=== PATIENT | female | born 1980 | race American Indian/Alaskan Native ===

== ENCOUNTER 2022-06-22 14:49 | Inpatient (IN) | payer SELFPAY ==
[2022-06-22] MEDS ORDERED: DEXTROSE 50% IN WATER (25GM) 50 ML SYRINGE IV ONE ×2 (15:26→17:45)
--- NOTE | 2022-06-22 15:58 | Emergency Department Report ---
History of Present Illness - General Chief Complaint: Overdose Stated Complaint: HYPOGLYCEMIA AND OVERDOSE Time Seen by Provider: 06/22/22 15:44 Source: EMS Mode of arrival: Stretcher Limitations: No Limitations - History of Present Illness Initial Comments: Patient is a 41-year-old female brought in by EMS for suspected overdose/hyperglycemia. She was found unresponsive by family who called EMS. EMS arrived to find patient hypoglycemic with initial fingerstick of 40. She was given IV dextrose with increased to 80. She was also given Narcan resulting in increased responsiveness. - Related Data Allergies Allergy/AdvReac Type Severity Reaction Status Date / Time No Known Allergies Allergy Verified 06/22/22 15:00 ED Review of Systems ROS: Stated complaint: HYPOGLYCEMIA AND OVERDOSE Other details as noted in HPI Comment: Unobtainable due to pts medical conditions ED Physical Exam - General Limitations: No Limitations General appearance: appears intoxicated, lethargic - Head Head exam: Present: atraumatic, normocephalic - Respiratory Respiratory exam: Present: normal lung sounds bilaterally. Absent: respiratory distress - Cardiovascular Cardiovascular Exam: Present: normal rhythm, tachycardia, normal heart sounds - GI/Abdominal GI/Abdominal exam: Present: soft. Absent: distended, tenderness - Rectal Rectal exam: Present: deferred - Neurological Exam Neurological exam: Present: altered - Skin Skin exam: Present: warm, dry, intact, normal color ED Course Vital Signs 06/22/22 14:54 Temperature 97.9 F Pulse Rate 114 H Respiratory 18 Rate Blood Pressure 122/82 [Left] O2 Sat by Pulse 96 Oximetry ED Medical Decision Making - Lab Data Result diagrams: 06/22/22 15:54 06/22/22 15:54 - Medical Decision Making Serum glucose 73. Patient given 1 amp of D50 resulting in increase to 107. Patient started on D5 normal saline infusion at 150 cc an hour. Repeat Accu- Chek an hour later was 44. Patient given another amp of D50 and rate increased to 250 cc an hour. Family arrived later and states that patient was reportedly partying with friends and likely consuming recreational drugs along with alcohol. Reports past history of alcoholism and drug use. No prior history of diabetes. Will admit for hypoglycemia. Critical care attestation.: If time is entered above; I have spent that time in minutes in the direct care of this critically ill patient, excluding procedure time. ED Disposition Clinical Impression: Hypoglycemia Disposition: ADMITTED INPATIENT Is pt being admited?: Yes Condition: Stable
[2022-06-22] MEDS ORDERED: SODIUM CHLORIDE 0.9% 1000 ML 1,000 ML IV ONE (16:00)
[2022-06-22 16:40] LABS: Mean Corpuscular HGB Conc 31 % (30-34); Mean Corpuscular Volume 89 fl (79-97); Platelet Count 264 K/mm3 (140-440); Red Blood Count 4.61 M/mm3 (3.65-5.03); Red Cell Distribution Width 14.3 % (13.2-15.2)
[2022-06-22 16:44] LABS: Hematocrit 41.2 % (30.3-42.9); Hemoglobin 12.7 gm/dl (10.1-14.3)
[2022-06-22 17:02] LABS: Alanine Aminotransferase 101 units/L (7-56); Albumin 4.1 g/dL (3.9-5); BUN/Creatinine Ratio 15; Blood Urea Nitrogen 20 mg/dL (7-17); Calcium 9.2 mg/dL (8.4-10.2); Hemolysis Index 73
[2022-06-22 17:33] LABS: Band Neutrophils # (Manual) 1.7 K/mm3; Basophils % (Manual) 0 % (0.0-1.8); Eosinophils % (Manual) 0 % (0.0-4.3); Myelocytes # (Manual) 0.5 K/mm3; Total Cells Counted 100
[2022-06-22 17:37] LABS: Platelet Estimate Consistent w Auto; RBC Morphology Normal
[2022-06-22] MEDS: D5W/0.9% NACL 1,000 ML IV SCH (17:55)
[2022-06-22] MEDS ORDERED: DEXTROSE 50% IN WATER (25GM) 50 ML VIAL IV ONE (18:00)
[2022-06-22 20:00] LABS: Amphetamine Screen,Urine Negative; Benzodiazepines Screen,Urine Negative; Cannabinoid Screen,Urine Negative; Methadone Screen,Urine Negative; Opiate Screen,Urine Negative
[2022-06-22 21:03] LABS: Cocaine Screen,Urine Positive
[2022-06-22] MEDS ORDERED: ACETAMINOPHEN 325 MG TAB PO PRN (23:05)
[2022-06-22] MEDS ORDERED: MORPHINE 4 MG/1 ML INJ IV PRN (23:05)
[2022-06-22] MEDS ORDERED: DEXTROSE 50% IN WATER (25GM) 50 ML SYRINGE IV PRN (23:05)
[2022-06-22] MEDS ORDERED: MAGNESIUM HYDROXIDE (MOM) ORAL LIQD UDC PO PRN (23:05)
[2022-06-22] MEDS ORDERED: MORPHINE 2 MG/1 ML INJ IV PRN (23:05)
[2022-06-22] MEDS ORDERED: ONDANSETRON 4 MG/2 ML INJ IV PRN (23:05)
--- NOTE | 2022-06-22 23:15 | History and Physical Report ---
History of Present Illness Date of examination: 06/22/22 Date of admission: 06/22/2022 Chief complaint: Overdose Hypoglycemia History of present illness: 41-year-old female brought into the emergency room via EMS for changes in mental status and hypoglycemia. Patient was said to be found unresponsive by family and EMS was called to scene. She was found to be hypoglycemic with blood glucose of 40. Patient was given IV dextrose. Improvement of blood glucose to about 80. Patient also had Narcan and became more responsive. Most of the history was obtained from the ER staff as patient cannot give a very coherent history. She appeared very drowsy. Work-up in the emergency room today, lab reveals WBC of 15.1, BUN of 20 and creatinine of 1.3. AST of 199 and ALT of 101. Urine drug screen was positive for cocaine. Patient being admitted for possible drug overdose and hypoglycemia. Past History Past Medical History: No medical history Past Surgical History: No surgical history Social history: no significant social history Family history: no significant family history Medications and Allergies Allergies Allergy/AdvReac Type Severity Reaction Status Date / Time No Known Allergies Allergy Verified 06/22/22 15:00 Active Meds: Active Medications Acetaminophen (Acetaminophen 325 Mg Tab) 650 mg PO Q4H PRN PRN Reason: Pain MILD(1-3)/Fever >100.5/PADILLA Dextrose (Dextrose 50% In Water (25gm) 50 Ml Syringe) 50 ml IV Q30MIN PRN; Protocol PRN Reason: Hypoglycemia Dextrose (Dextrose 50% In Water (25gm) 50 Ml Syringe) 50 ml IV Q30MIN PRN; Protocol PRN Reason: Hypoglycemia Heparin Sodium (Porcine) (Heparin 5,000 Unit/1 Ml Vial) 5,000 unit SUB-Q Q8HR GERARD Dextrose/Sodium Chloride (D5ns) 1,000 mls @ 150 mls/hr IV DIRECT GERARD Last Admin: 06/22/22 17:55 Dose: 150 mls/hr Insulin Human Lispro (Insulin Lispro 100 Unit/Ml) 0 unit SUB-Q ACHS GERARD; Protocol Magnesium Hydroxide (Magnesium Hydroxide (Mom) Oral Liqd Udc) 30 ml PO Q4H PRN PRN Reason: Constipation Morphine Sulfate (Morphine 2 Mg/1 Ml Inj) 2 mg IV Q4H PRN PRN Reason: Pain, Moderate (4-6) Morphine Sulfate (Morphine 4 Mg/1 Ml Inj) 4 mg IV Q4H PRN PRN Reason: Pain , Severe (7-10) Ondansetron HCl (Ondansetron 4 Mg/2 Ml Inj) 4 mg IV Q8H PRN PRN Reason: Nausea And Vomiting Sodium Chloride (Sodium Chloride 0.9% 10 Ml Flush Syringe) 10 ml IV BID GERARD Sodium Chloride (Sodium Chloride 0.9% 10 Ml Flush Syringe) 10 ml IV PRN PRN PRN Reason: LINE FLUSH Review of Systems Constitutional: no fever, no chills Ears, nose, mouth and throat: no nasal congestion, no sore throat Cardiovascular: no chest pain, no palpitations Respiratory: no cough, no shortness of breath Gastrointestinal: no abdominal pain, no nausea, no vomiting, no diarrhea Genitourinary Female: no pelvic pain, no flank pain, no dysuria, no hematuria Musculoskeletal: no neck pain, no low back pain Integumentary: no rash, no pruritis Neurological: no headaches, no confusion Psychiatric: no anxiety, no depression Endocrine: no polyphagia, no polydipsia, no polyuria, no nocturia Exam - Constitutional Vitals: Temp Pulse Resp BP Pulse Ox 98.0 F 92 H 17 109/76 98 06/22/22 20:45 06/22/22 22:08 06/22/22 22:08 06/22/22 22:08 06/22/22 22:08 General appearance: Present: no acute distress, well-nourished - EENT Eyes: Present: PERRL, EOM intact. Absent: scleral icterus ENT: hearing intact, clear oral mucosa, dentition normal - Neck Neck: Present: supple, normal ROM - Respiratory Respiratory effort: normal Respiratory: bilateral: CTA - Cardiovascular Rhythm: regular Heart Sounds: Present: S1 & S2. Absent: gallop, systolic murmur, diastolic murmur, rub, click - Extremities Extremities: no ischemia, pulses intact, pulses symmetrical, No edema, normal temperature, normal color, Full ROM Peripheral Pulses: within normal limits - Abdominal General gastrointestinal: Present: soft, non-tender, non-distended, normal bowel sounds. Absent: mass - Integumentary Integumentary: Present: clear, warm, dry, normal turgor. Absent: rash - Musculoskeletal Musculoskeletal: strength equal bilaterally - Psychiatric Psychiatric: appropriate mood/affect, intact judgment & insight, memory intact, cooperative - Neurologic Neurologic: CNII-XII intact, no focal deficits, moves all extremities, other (Drowsy) Results - Labs CBC & Chem 7: 06/22/22 15:54 06/22/22 15:54 Labs: Abnormal lab results 06/22/22 06/22/22 06/22/22 Range/Units 15:54 15:54 15:54 WBC 15.1 H (4.5-11.0) K/mm3 Seg Neuts % (Manual) 82.0 H (40.0-70.0) % Lymphocytes % (Manual) 3.0 L (13.4-35.0) % Seg Neutrophils # Man 12.4 H (1.8-7.7) K/mm3 Lymphocytes # (Manual) 0.5 L (1.2-5.4) K/mm3 Carbon Dioxide 16 L (22-30) mmol/L BUN 20 H (7-17) mg/dL Creatinine 1.3 H (0.6-1.2) mg/dL POC Glucose (70-105) mg/dL AST 199 H (5-40) units/L ALT 101 H (7-56) units/L Salicylates < 0.3 L (2.8-20.0) mg/dL Acetaminophen (10.0-30.0) ug/mL 06/22/22 06/22/22 06/22/22 Range/Units 15:54 17:44 18:21 WBC (4.5-11.0) K/mm3 Seg Neuts % (Manual) (40.0-70.0) % Lymphocytes % (Manual) (13.4-35.0) % Seg Neutrophils # Man (1.8-7.7) K/mm3 Lymphocytes # (Manual) (1.2-5.4) K/mm3 Carbon Dioxide (22-30) mmol/L BUN (7-17) mg/dL Creatinine (0.6-1.2) mg/dL POC Glucose 44 L 158 H (70-105) mg/dL AST (5-40) units/L ALT (7-56) units/L Salicylates (2.8-20.0) mg/dL Acetaminophen 5.0 L (10.0-30.0) ug/mL 06/22/22 Range/Units 19:12 WBC (4.5-11.0) K/mm3 Seg Neuts % (Manual) (40.0-70.0) % Lymphocytes % (Manual) (13.4-35.0) % Seg Neutrophils # Man (1.8-7.7) K/mm3 Lymphocytes # (Manual) (1.2-5.4) K/mm3 Carbon Dioxide (22-30) mmol/L BUN (7-17) mg/dL Creatinine (0.6-1.2) mg/dL POC Glucose 158 H (70-105) mg/dL AST (5-40) units/L ALT (7-56) units/L Salicylates (2.8-20.0) mg/dL Acetaminophen (10.0-30.0) ug/mL Assessment and Plan Assessment: 1.Altered mental Status-possibly secondary to drug overdose. 2.Hypoglycemia Plan: 1. Patient admitted and placed on dextrose IV fluid. We will monitor Accu- Cheks. 2. We will continue to monitor mental status. DVT Prophylaxis:SQ Heparin Code Status: Full Code
[2022-06-23] MEDS: HEPARIN 5,000 UNIT/1 ML VIAL SUB-Q SCH ×3 (05:25→21:30)
[2022-06-23] MEDS: D5W/0.9% NACL 1,000 ML IV SCH (05:25)
[2022-06-23 06:08] LABS: BUN/Creatinine Ratio 19; Blood Urea Nitrogen 17 mg/dL (7-17); Hemolysis Index 9
--- NOTE | 2022-06-23 09:34 | Discharge Summary ---
Providers - Providers Date of Admission: 06/22/22 23:06 Date of discharge: 06/23/22 Attending physician: EDWIN RAMIREZ 06/22/22 23:06 Consult to Dietitian/Nutrition [CONS] Routine Physician Instructions: Reason For Exam: Reason for Consult: Diet education Primary care physician: ANN HALE Hospitalization Reason for admission: AMS, hypoglycemia Condition: Stable Hospital course: 41-year-old female brought into the emergency room via EMS for changes in mental status and hypoglycemia. Patient was said to be found unresponsive by family and EMS was called to scene. She was found to be hypoglycemic with blood glucose of 40. Patient was given IV dextrose. Improvement of blood glucose to about 80. Patient also had Narcan and became more responsive. Initially, most of the history was obtained from the ER staff as patient cannot give a very coherent history. She appeared very drowsy. Work-up in the emergency room today, lab reveals WBC of 15.1, BUN of 20 and creatinine of 1.3. AST of 199 and ALT of 101. Urine drug screen was positive for cocaine. The patient was admitted for drug o verdose, metabolic encephalopathy and hypoglycemia. The patient is back to her baseline mental status and BG has been stable. The patient to be evaluated by psych and if cleared will be discharged home. Dedicated discharge time 32 minutes Disposition: 01 HOME / SELF CARE / HOMELESS Final Discharge Diagnosis (Prints w/discharge instructions): Cocaine abuse, Whipple's triad, hypoglycemia, metabolic encephalopathy Core Measure Documentation - Palliative Care Palliative Care/ Comfort Measures: Not Applicable - Core Measures Any of the following diagnoses?: none Exam - Constitutional Vitals: Temp Pulse Resp BP Pulse Ox 97.8 F 86 16 100/69 100 06/23/22 08:13 06/23/22 08:13 06/23/22 05:25 06/23/22 08:13 06/23/22 08:13 General appearance: Present: no acute distress, well-nourished - EENT Eyes: Present: PERRL ENT: hearing intact, clear oral mucosa - Neck Neck: Present: supple, normal ROM - Respiratory Respiratory effort: normal Respiratory: bilateral: CTA - Cardiovascular Heart Sounds: Present: S1 & S2. Absent: rub, click - Extremities Extremities: pulses symmetrical, No edema Peripheral Pulses: within normal limits - Abdominal General gastrointestinal: Present: soft, non-tender, non-distended, normal bowel sounds Female genitourinary: Present: normal - Integumentary Integumentary: Present: clear, warm, dry - Musculoskeletal Musculoskeletal: gait normal, strength equal bilaterally - Psychiatric Psychiatric: appropriate mood/affect, intact judgment & insight - Neurologic Neurologic: CNII-XII intact, moves all extremities Plan Activity: advance as tolerated Weight Bearing Status: Weight Bear as Tolerated Diet: regular Follow up with: ANN HALE MD [Primary Care Provider] - 3-5 Days
[2022-06-23] MEDS: INSULIN LISPRO 100 UNIT/ML SUB-Q SCH ×3 (09:55→22:00)
--- NOTE | 2022-06-23 13:22 | Consultation ---
History of Present Illness - Reason for Consult Consult date: 06/23/22 Reason for consult: ams - Chief Complaint Chief complaint: Overdose Hypoglycemia - History of Present Psychiatric Illness The patient was seen today. She says she was brought to the hospital after she passed out. She says she was told her blood sugar dropped. The patient is a/o x 3. She is calm, cooperative and pleasant. She says she feels fine. The patient denies overdosing on anything, she also denies SI/HI or any past attempt. She does endorse doing cocaine and alcohol for "recreational use." The patient denies any past history of psych, and inpatient admissions or being on any psych meds. She denies hallucinations of any kind. The patient says she lives with her children. She is , and employed. REVIEW OF SYSTEMS Constitutional: Negative for weight loss ENT: Negative for stridor Respiratory: Negative for cough or hemoptysis All other systems reviewed and are negative MENTAL STATUS EXAMINATION General Appearance and Behavior: polite, calm, and cooperative, in bed eating Cooperation: Participating/engaged Psychomotor Behavior: normal Mood: fine Affect and affective range: Euthymic Thought Process: goal directed Thought Content: reality oriented Speech: Normal tone and pace Suicidal Ideation: Denies Homicidal Ideation: Denies Hallucinations: Denies Delusions: None elicited Impulse Control: Normal Insight and Judgment: Normal insight and judgment Memory: Normal Attention: Attentive Orientation: Alert, oriented x 3 Assessment and Plan (1) Encounter for Mental Health Eval Treatment Plan No scripts given Risks, benefits and alternatives of medications discussed with the patient, questions answered and consent obtained from patient. PSYCHOTHERAPY: Supportive psychotherapy provided MEDICAL: Per primary team DELIRIUM PRECAUTIONS: Please re-orient patient frequently, keep lights on during the day, and minimize benzodiazepines and opiates as these medications could worsen patient's confusion. 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 Thank you for the consult. Please contact with any questions and/or concerns. Case staffed with Dr. Navarro Medications and Allergies Allergies Allergy/AdvReac Type Severity Reaction Status Date / Time acetaminophen [From Percocet] Allergy Hives Verified 06/23/22 10:51 oxycodone [From Percocet] Allergy Hives Verified 06/23/22 10:51 Home Medications Medication Instructions Recorded Confirmed Last Taken Type No Known Home Medications [No 06/23/22 06/23/22 Unknown History Reported Home Medications] Active Meds: Active Medications Acetaminophen (Acetaminophen 325 Mg Tab) 650 mg PO Q4H PRN PRN Reason: Pain MILD(1-3)/Fever >100.5/PADILLA Dextrose (Dextrose 50% In Water (25gm) 50 Ml Syringe) 50 ml IV Q30MIN PRN; Protocol PRN Reason: Hypoglycemia Heparin Sodium (Porcine) (Heparin 5,000 Unit/1 Ml Vial) 5,000 unit SUB-Q Q8HR GERARD Last Admin: 06/23/22 05:25 Dose: 5,000 unit Dextrose/Sodium Chloride (D5ns) 1,000 mls @ 150 mls/hr IV DIRECT GERARD Last Admin: 06/23/22 05:25 Dose: 150 mls/hr Insulin Human Lispro (Insulin Lispro 100 Unit/Ml) 0 unit SUB-Q ACHS GERARD; Protocol Last Admin: 06/23/22 09:55 Dose: Not Given Magnesium Hydroxide (Magnesium Hydroxide (Mom) Oral Liqd Udc) 30 ml PO Q4H PRN PRN Reason: Constipation Morphine Sulfate (Morphine 2 Mg/1 Ml Inj) 2 mg IV Q4H PRN PRN Reason: Pain, Moderate (4-6) Morphine Sulfate (Morphine 4 Mg/1 Ml Inj) 4 mg IV Q4H PRN PRN Reason: Pain , Severe (7-10) Ondansetron HCl (Ondansetron 4 Mg/2 Ml Inj) 4 mg IV Q8H PRN PRN Reason: Nausea And Vomiting Sodium Chloride (Sodium Chloride 0.9% 10 Ml Flush Syringe) 10 ml IV BID GERARD Sodium Chloride (Sodium Chloride 0.9% 10 Ml Flush Syringe) 10 ml IV PRN PRN PRN Reason: LINE FLUSH Mental Status Exam - Vital signs Last Vital Signs Temp 97.8 F 06/23/22 08:13 Pulse 86 06/23/22 08:13 Resp 16 06/23/22 05:25 BP 100/69 06/23/22 08:13 Pulse Ox 100 06/23/22 08:13 Results Result Diagrams: 06/22/22 15:54 06/23/22 04:47 Abnormal lab results 06/22/22 06/22/22 06/22/22 Range/Units 15:54 15:54 15:54 WBC 15.1 H (4.5-11.0) K/mm3 Seg Neuts % (Manual) 82.0 H (40.0-70.0) % Lymphocytes % (Manual) 3.0 L (13.4-35.0) % Seg Neutrophils # Man 12.4 H (1.8-7.7) K/mm3 Lymphocytes # (Manual) 0.5 L (1.2-5.4) K/mm3 Sodium (137-145) mmol/L Chloride (98-107) mmol/L Carbon Dioxide 16 L (22-30) mmol/L BUN 20 H (7-17) mg/dL Creatinine 1.3 H (0.6-1.2) mg/dL Glucose (65-100) mg/dL POC Glucose (70-105) mg/dL AST 199 H (5-40) units/L ALT 101 H (7-56) units/L Salicylates < 0.3 L (2.8-20.0) mg/dL Acetaminophen (10.0-30.0) ug/mL 06/22/22 06/22/22 06/22/22 Range/Units 15:54 17:44 18:21 WBC (4.5-11.0) K/mm3 Seg Neuts % (Manual) (40.0-70.0) % Lymphocytes % (Manual) (13.4-35.0) % Seg Neutrophils # Man (1.8-7.7) K/mm3 Lymphocytes # (Manual) (1.2-5.4) K/mm3 Sodium (137-145) mmol/L Chloride (98-107) mmol/L Carbon Dioxide (22-30) mmol/L BUN (7-17) mg/dL Creatinine (0.6-1.2) mg/dL Glucose (65-100) mg/dL POC Glucose 44 L 158 H (70-105) mg/dL AST (5-40) units/L ALT (7-56) units/L Salicylates (2.8-20.0) mg/dL Acetaminophen 5.0 L (10.0-30.0) ug/mL 06/22/22 06/23/22 Range/Units 19:12 04:47 WBC (4.5-11.0) K/mm3 Seg Neuts % (Manual) (40.0-70.0) % Lymphocytes % (Manual) (13.4-35.0) % Seg Neutrophils # Man (1.8-7.7) K/mm3 Lymphocytes # (Manual) (1.2-5.4) K/mm3 Sodium 131 L D (137-145) mmol/L Chloride 97.6 L (98-107) mmol/L Carbon Dioxide 20 L (22-30) mmol/L BUN (7-17) mg/dL Creatinine (0.6-1.2) mg/dL Glucose 101 H (65-100) mg/dL POC Glucose 158 H (70-105) mg/dL AST (5-40) units/L ALT (7-56) units/L Salicylates (2.8-20.0) mg/dL Acetaminophen (10.0-30.0) ug/mL All other labs normal.
[2022-06-24] MEDS: HEPARIN 5,000 UNIT/1 ML VIAL SUB-Q SCH ×2 (06:10→14:46)
[2022-06-24 08:41] VITALS: BP 102/57
[2022-06-24] MEDS: INSULIN LISPRO 100 UNIT/ML SUB-Q SCH ×2 (08:56→14:46)
[2022-06-24] MEDS ORDERED: SODIUM CHLORIDE 0.9% 1000 ML 1,000 ML IV SCH (10:00)
--- NOTE | 2022-06-24 10:02 | Cat Scan Report ---
CT HEAD WITHOUT CONTRAST INDICATION / CLINICAL INFORMATION: r/o CVA. TECHNIQUE: Axial imaging performed from the skull apex through the skull base without the use of cont rast. Sagittal and coronal reformatted images. All CT scans at this location are performed using CT dose reduction for ALARA by means of automated exposure control. COMPARISON: None available. FINDINGS: CEREBRAL PARENCHYMA: No significant abnormality. No acute territorial infarct. HEMORRHAGE: None. EXTRA-AXIAL SPACES: Normal in size and morphology for the patient's age. VENTRICULAR SYSTEM: Normal in size and morphology for the patient's age. MIDLINE SHIFT OR HERNIATION: None. CEREBELLUM / BRAINSTEM: No significant abnormality. CALVARIUM: No significant abnormality. ORBITS: Normal as visualized. PARANASAL SINUSES / MASTOID AIR CELLS: Normal as visualized. SOFT TISSUES of HEAD: No significant abnormality. ADDITIONAL FINDINGS: None. IMPRESSION: No acute intracranial abnormality. Signer Name: Arsalan Fofana Jr, MD Signed: 06/24/2022 9:58 AM Workstation Name: [id number]
--- NOTE | 2022-06-24 11:02 | Progress Note ---
Assessment and Plan Assessment and plan: 41-year-old female brought into the emergency room via EMS for changes in mental status and hypoglycemia. Patient was said to be found unresponsive by family and EMS was called to scene. She was found to be hypoglycemic with blood glucose of 40. Patient was given IV dextrose. Improvement of blood glucose to about 80. Patient also had Narcan and became more responsive. Initially, most of the history was obtained from the ER staff as patient cannot give a very coherent history. She appeared very drowsy. Work-up in the emergency room with lab revealing WBC of 15.1, BUN of 20 and creatinine of 1.3. AST of 199 and ALT of 101. Urine drug screen was positive for cocaine. The patient was admitted with diagnosis below Metabolic encephalopathy Hypoglycemia Drug overdose 06/23/2022. Patient will have psychiatric evaluation and if cleared will likely discharge home. Patient exhibited Whipple's triad with resolution of altered mentation with the administration of glucose. Patient exhibiting no further signs of altered mentation or hypoglycemia 06/24/2022. Patient refused discharge yesterday evening because of right lower extremity pain causing unsteady gait and persistent dizziness. We will check CT scan of the head today for further evaluation. Also, given the questionable syncope/fall, we will check right hip films. Patient does have some mild tenderness to the right lateral hip. No evidence of bruising. PT evaluation History Interval history: No new issues overnight Hospitalist Physical - Constitutional Vitals: Temp Pulse Resp BP Pulse Ox 98.9 F 100 H 18 102/57 97 06/24/22 07:47 06/24/22 07:47 06/24/22 07:47 06/24/22 07:47 06/24/22 07:47 General appearance: Present: no acute distress, well-nourished - EENT Eyes: Present: PERRL, EOM intact ENT: hearing intact, clear oral mucosa, dentition normal - Neck Neck: Present: supple, normal ROM - Respiratory Respiratory effort: normal Respiratory: bilateral: CTA - Cardiovascular Rhythm: regular Heart Sounds: Present: S1 & S2. Absent: gallop, rub - Extremities Extremities: no ischemia, No edema, Full ROM - Abdominal General gastrointestinal: soft, non-tender, non-distended, normal bowel sounds - Integumentary Integumentary: Present: clear, warm, dry - Neurologic Neurologic: CNII-XII intact, moves all extremities Results - Labs CBC & Chem 7: 06/22/22 15:54 06/23/22 04:47 Labs: Laboratory Last Values WBC 15.1 K/mm3 (4.5-11.0) H 06/22/22 15:54 RBC 4.61 M/mm3 (3.65-5.03) 06/22/22 15:54 Hgb 12.7 gm/dl (10.1-14.3) 06/22/22 15:54 Hct 41.2 % (30.3-42.9) 06/22/22 15:54 MCV 89 fl (79-97) 06/22/22 15:54 MCH 28 pg (28-32) 06/22/22 15:54 MCHC 31 % (30-34) 06/22/22 15:54 RDW 14.3 % (13.2-15.2) 06/22/22 15:54 Plt Count 264 K/mm3 (140-440) 06/22/22 15:54 Add Manual Diff Complete 06/22/22 15:54 Total Counted 100 06/22/22 15:54 Seg Neutrophils % English Tutor 06/22/22 15:54 Seg Neuts % (Manual) 82.0 % (40.0-70.0) H 06/22/22 15:54 Band Neutrophils % 11.0 % 06/22/22 15:54 Lymphocytes % (Manual) 3.0 % (13.4-35.0) L 06/22/22 15:54 Reactive Lymphs % (Man) 0 % 06/22/22 15:54 Monocytes % (Manual) 1.0 % (0.0-7.3) 06/22/22 15:54 Eosinophils % (Manual) 0 % (0.0-4.3) 06/22/22 15:54 Basophils % (Manual) 0 % (0.0-1.8) 06/22/22 15:54 Metamyelocytes % 0 % 06/22/22 15:54 Myelocytes % 3.0 % 06/22/22 15:54 Promyelocytes % 0 % 06/22/22 15:54 Blast Cells % 0 % 06/22/22 15:54 Nucleated RBC % Not Reportable 06/22/22 15:54 Seg Neutrophils # Man 12.4 K/mm3 (1.8-7.7) H 06/22/22 15:54 Band Neutrophils # 1.7 K/mm3 06/22/22 15:54 Lymphocytes # (Manual) 0.5 K/mm3 (1.2-5.4) L 06/22/22 15:54 Abs React Lymphs (Man) 0.0 K/mm3 06/22/22 15:54 Monocytes # (Manual) 0.2 K/mm3 (0.0-0.8) 06/22/22 15:54 Eosinophils # (Manual) 0.0 K/mm3 (0.0-0.4) 06/22/22 15:54 Basophils # (Manual) 0.0 K/mm3 (0.0-0.1) 06/22/22 15:54 Metamyelocytes # 0.0 K/mm3 06/22/22 15:54 Myelocytes # 0.5 K/mm3 06/22/22 15:54 Promyelocytes # 0.0 K/mm3 06/22/22 15:54 Blast Cells # 0.0 K/mm3 06/22/22 15:54 WBC Morphology Not Reportable 06/22/22 15:54 Hypersegmented Neuts Not Reportable 06/22/22 15:54 Hyposegmented Neuts Not Reportable 06/22/22 15:54 Hypogranular Neuts Not Reportable 06/22/22 15:54 Smudge Cells Not Reportable 06/22/22 15:54 Toxic Granulation Not Reportable 06/22/22 15:54 Toxic Vacuolation Not Reportable 06/22/22 15:54 Dohle Bodies Not Reportable 06/22/22 15:54 Pelger-Huet Anomaly Not Reportable 06/22/22 15:54 Nati Rods Not Reportable 06/22/22 15:54 Platelet Estimate Consistent w auto 06/22/22 15:54 Clumped Platelets Not Reportable 06/22/22 15:54 Plt Clumps, EDTA Not Reportable 06/22/22 15:54 Large Platelets Not Reportable 06/22/22 15:54 Giant Platelets Not Reportable 06/22/22 15:54 Platelet Satelliting Not Reportable 06/22/22 15:54 Plt Morphology Comment Not Reportable 06/22/22 15:54 RBC Morphology Normal 06/22/22 15:54 Dimorphic RBCs Not Reportable 06/22/22 15:54 Polychromasia Not Reportable 06/22/22 15:54 Hypochromasia Not Reportable 06/22/22 15:54 Poikilocytosis Not Reportable 06/22/22 15:54 Anisocytosis Not Reportable 06/22/22 15:54 Microcytosis Not Reportable 06/22/22 15:54 Macrocytosis Not Reportable 06/22/22 15:54 Spherocytes Not Reportable 06/22/22 15:54 Pappenheimer Bodies Not Reportable 06/22/22 15:54 Sickle Cells Not Reportable 06/22/22 15:54 Target Cells Not Reportable 06/22/22 15:54 Tear Drop Cells Not Reportable 06/22/22 15:54 Ovalocytes Not Reportable 06/22/22 15:54 Helmet Cells Not Reportable 06/22/22 15:54 [place] Bodies Not Reportable 06/22/22 15:54 [place] Rings Not Reportable 06/22/22 15:54 [place] Cells Not Reportable 06/22/22 15:54 Bite Cells Not Reportable 06/22/22 15:54 Crenated Cell Not Reportable 06/22/22 15:54 Elliptocytes Not Reportable 06/22/22 15:54 Acanthocytes (Spur) Not Reportable 06/22/22 15:54 Rouleaux Not Reportable 06/22/22 15:54 Hemoglobin C Crystals Not Reportable 06/22/22 15:54 Schistocytes Not Reportable 06/22/22 15:54 Malaria parasites Not Reportable 06/22/22 15:54 Fidel Bodies Not Reportable 06/22/22 15:54 Hem Pathologist Commnt No 06/22/22 15:54 Sodium 131 mmol/L (137-145) L D 06/23/22 04:47 Potassium 4.6 mmol/L (3.6-5.0) 06/23/22 04:47 Chloride 97.6 mmol/L (98-107) L 06/23/22 04:47 Carbon Dioxide 20 mmol/L (22-30) L 06/23/22 04:47 Anion Gap 18 mmol/L 06/23/22 04:47 BUN 17 mg/dL (7-17) 06/23/22 04:47 Creatinine 0.9 mg/dL (0.6-1.2) 06/23/22 04:47 Estimated GFR > 60 ml/min 06/23/22 04:47 BUN/Creatinine Ratio 19 % 06/23/22 04:47 Glucose 101 mg/dL (65-100) H 06/23/22 04:47 POC Glucose 95 mg/dL (70-105) 06/24/22 07:37 Calcium 9.0 mg/dL (8.4-10.2) 06/23/22 04:47 Total Bilirubin < 0.20 mg/dL (0.1-1.2) 06/22/22 15:54 AST 199 units/L (5-40) H 06/22/22 15:54 ALT 101 units/L (7-56) H 06/22/22 15:54 Alkaline Phosphatase 80 units/L (35-129) 06/22/22 15:54 Total Protein 7.3 g/dL (6.3-8.2) 06/22/22 15:54 Albumin 4.1 g/dL (3.9-5) 06/22/22 15:54 Albumin/Globulin Ratio 1.3 % 06/22/22 15:54 Salicylates < 0.3 mg/dL (2.8-20.0) L 06/22/22 15:54 Urine Opiates Screen Negative 06/22/22 19:14 Urine Methadone Screen Negative 06/22/22 19:14 Acetaminophen 5.0 ug/mL (10.0-30.0) L 06/22/22 15:54 Ur Barbiturates Screen Negative 06/22/22 19:14 Ur Phencyclidine Scrn Negative 06/22/22 19:14 Ur Amphetamines Screen Negative 06/22/22 19:14 U Benzodiazepines Scrn Negative 06/22/22 19:14 Urine Cocaine Screen Positive 06/22/22 19:14 U Marijuana (THC) Screen Negative 06/22/22 19:14 Drugs of Abuse Note Disclamer 06/22/22 19:14 Plasma/Serum Alcohol < 0.01 % (0-0.07) 06/22/22 15:54 Ibanez/IV: Voiding Method Toilet Active Medications - Current Medications Current Medications: Generic Name Dose Route Start Last Admin Trade Name Freq PRN Reason Stop Dose Admin Acetaminophen 650 mg 06/22/22 23:05 Acetaminophen 325 Mg Tab PO Q4H PRN Pain MILD(1-3)/Fever >100.5/PADILLA Dextrose 50 ml 06/22/22 23:05 Dextrose 50% In Water (25gm) 50 Ml Syringe IV Q30MIN PRN Hypoglycemia Protocol Heparin Sodium (Porcine) 5,000 unit 06/23/22 06:00 06/24/22 06:10 Heparin 5,000 Unit/1 Ml Vial SUB-Q 5,000 unit Q8HR GERARD Administration Sodium Chloride 1,000 mls @ 75 mls/hr 06/24/22 10:00 Nacl 0.9% 1000 Ml IV DIRECT GERARD Insulin Human Lispro 0 unit 06/23/22 07:30 06/24/22 08:56 Insulin Lispro 100 Unit/Ml SUB-Q Not Given ACHS [facility] Protocol Magnesium Hydroxide 30 ml 06/22/22 23:05 Magnesium Hydroxide (Mom) Oral Liqd Udc PO Q4H PRN Constipation Morphine Sulfate 2 mg 06/22/22 23:05 Morphine 2 Mg/1 Ml Inj IV Q4H PRN Pain, Moderate (4-6) Morphine Sulfate 4 mg 06/22/22 23:05 Morphine 4 Mg/1 Ml Inj IV Q4H PRN Pain , Severe (7-10) Ondansetron HCl 4 mg 06/22/22 23:05 Ondansetron 4 Mg/2 Ml Inj IV Q8H PRN Nausea And Vomiting Sodium Chloride 10 ml 06/23/22 10:00 06/23/22 21:30 Sodium Chloride 0.9% 10 Ml Flush Syringe IV 10 ml BID GERARD Administration Sodium Chloride 10 ml 06/22/22 23:05 Sodium Chloride 0.9% 10 Ml Flush Syringe IV PRN PRN LINE FLUSH Nutrition/Malnutrition Assess - Dietary Evaluation Nutrition/Malnutrition Findings: Nutrition Notes Start: 06/23/22 17:37 Freq: Status: Active Protocol: Document 06/23/22 17:37 CM (Rec: 06/23/22 17:40 CM [id number]) Co-Sign 06/23/22 17:37 WW Nutrition Notes Need for Assessment generated from: MD Order,Education Initial or Follow up Brief Note Other Pertinent Diagnosis AMS, Hypoglycemia Current Diet Cardiac/Consistent Carbohydrate Diet Labs/Tests Na 131 Cl 97.6 CO2 20 POCT 44 (06/22) Pertinent Medications Reviewed Height 5 ft 7 in Weight 83 kg [place] Body Weight (kg) 61.36 BMI 28.6 Intake Prior to Admission Good Weight change and time frame No unintentional wt loss [employer] per malnutrition screening tool assessment. Weight Status Overweight Subjective/Other Information RD consult for diet education. Pt is not appropriate for diet education - no underlying nutrition-related conditions. Encouraged pt to consume adequate and consistent energy throughout the day to prevent hypoglycemia. Skin Integrity/Comment Edema noted Nutrition Intervention Revisit per MD consult or patient Sign Off request:
--- NOTE | 2022-06-24 11:48 | XRay Report ---
Pelvis and right hip 3 views INDICATION: Fall FINDINGS: Bilateral femoral heads well-seated in the acetabulum. No acute fracture dislocation. Super ior and inferior pubic rami appear intact. Mild degenerative change of the pubic symphysis Signer Name: Jesse Garces MD Signed: 06/24/2022 11:43 AM Workstation Name: [id number]
== END 2022-06-24 15:20 | disposition home or self-care (01) | DRG 917 ==
LOC: ED 14:49 → 3A 23:06 → 4A 06-23 02:00
PROVIDERS: ADMIT Internal Medicine Geriatric Medicine; ATTEND Hospitalist
DX: T50.901A Poisoning by unspecified drugs, medicaments and biological substances, accidental (unintentional), initial encounter (principal); G93.41 Metabolic encephalopathy; E16.2 Hypoglycemia, unspecified; F14.10 Cocaine abuse, uncomplicated; Y92.89 Other specified places as the place of occurrence of the external cause
CPT/HCPCS: 36415; 70450; 80048; 80053; 80307; 80320; 82962; 85007; 85025; G0378; J3490; G0480; J1644; J7030; J7042